=== PATIENT | male | born 1955 | race Caucasian/White ===

== ENCOUNTER → 2020-06-20 | Outpatient (CLI) | payer MEDICARE, OTHER | LOC: KOH-I 10:06 | DX: M25.562 Pain in left knee (principal); M17.11 Unilateral primary osteoarthritis, right knee; R60.0 Localized edema | CPT/HCPCS: 73721 ==

== ENCOUNTER → 2020-08-29 | Outpatient (CLI) | payer MEDICARE, OTHER | LOC: HEART 5 15:59 | DX: R05 Cough (principal); R06.02 Shortness of breath | CPT/HCPCS: 94010 ==